=== PATIENT | male | born 1960 | race Caucasian/White ===

== ENCOUNTER 2022-09-25 10:12 | Emergency (ER) | payer BC, SELFPAY ==
--- NOTE | ~2022-09-25 | XR_ITS ---
EXAMINATION: XR chest 2V DATE: 09/25/2022 12:00 INDICATION: Chest pain, hypertension TECHNIQUE: PA and lateral views of the chest are obtained. COMPARISON: None available FINDINGS: The lungs are free of acute opacities. No pleural effusion or pneumothorax. The cardiomedia stinal silhouette is normal. There is mild thoracic spondylosis. IMPRESSION: 1. No acute cardiopulmonary abnormality. Reviewed, dictated and finalized at location L. MERIZATION ENGINEER
--- NOTE | ~2022-09-25 | CT_ITS ---
Non-contrast Head CT History: Hypertension, headache Technique: Axial non-contrast imaging of the brain was performed. Dose reduction technique was used on this scan by utilizing automated exposure control and iterative reconstruction technique. The dose -length product (DLP) was 605.33 mGy-cm. Findings: There is no evidence of intracranial hemorrhage, mass lesion, or acute infarct. Brain par enchyma appears normal. The ventricles and subarachnoid spaces are normal in size. The calvarium ap pears normal. The visualized paranasal sinuses and mastoid air cells are clear. Impression: No significant abnormality seen. Reviewed, dictated and finalized at location . ERTY MAN Impression: No significant abnormality seen.
[2022-09-25 10:24] VITALS: BP 183/84; PULSE 91; RESP 14; TEMP 36.4; O2SAT 100
--- NOTE | 2022-09-25 11:23 | ECG_ITS ---
Measurements Intervals [place] Rate: 98 P: 50 GA: 176 QRS: -9 QRSD: 99 T: 70 QT: 351 QTc: 450 Interpretive Statements SINUS RHYTHM NO PREVIOUS ECG AVAILABLE FOR COMPARISON Electronically Signed On 09-25-2022 15:47:12 ACQUISITION ANALYST by Anam Panda M.D.
[2022-09-25 11:24] VITALS: BP 175/97; PULSE 92; RESP 13; O2SAT 100
--- NOTE | 2022-09-25 11:37 | ED.RECABL ---
HPI - Recheck/Abnormal Lab/Rx General Chief Complaint: Recheck/Abnormal Lab/Rx Stated Complaint: Headache for several days, elevated bp at home Time Seen by Provider: 09/25/22 11:26 Source: patient and family Mode of arrival: ambulatory Limitations: no limitations History of Present Illness HPI narrative: Patient is 62 years old white male came to the emergency room by private car with his complaining of slight diffuse headache over the last 2 days, subsequently patient got worried and started checking his blood pressure which was 159/96 last night, this morning 185/115. Patient on hydrochlorothiazide 12.5 mg once a day, he denies any fever, chills, nausea, vomiting, chest pain or shortness of breath. Patient been feeling off over the last 2 days, he denies aggravating or relieving factors of his headache. Patient's reported that patient under tremendous amount of stress lately. Related Data Allergies Allergy/AdvReac Type Severity Reaction Status Date / Time No Known Allergies Allergy Verified 09/25/22 11:24 Review of Systems Review of Systems: All systems reviewed & are unremarkable except as noted in HPI and below Exam Narrative: General appearance: Well-developed, well-nourished, anxious with intermittent sighing Skin: Normal color Head: Normocephalic, nontraumatic Eyes: Clear conjunctiva ENT: Oropharynx normal, ears normal, nose normal Neck: Supple, nontender Chest and respiratory: Airway patent, no respiratory distress, no accessory muscle use Heart: Regular rate/rhythm Abdomen: Soft, nontender, no organomegaly, quiet bowel sounds Vascular: Normal peripheral pulses, normal capillary refill. Musculoskeletal: Normal range of motion, nontender back Neurologic: Alert and oriented ?3, USED [employer] is normal as tested, no gross motor deficit Course Reevaluation(s) Reevaluation #1: Patient feeling much better, after having Ativan 1 mg IV, blood pressure within normal limits, less anxious. Date: 09/25/22 Time: 13:10 Vital Signs Vital signs: Vital Signs Temperature 36.4 C 09/25/22 10:24 Pulse Rate 91 09/25/22 10:24 Respiratory Rate 14 09/25/22 10:24 Blood Pressure 183/84 H 09/25/22 10:24 Pulse Oximetry 100 09/25/22 10:24 Oxygen Delivery Room Air 02/09/23 10:24 Temperature 36.4 C 09/25/22 10:24 Pulse Rate 67 09/25/22 12:47 Respiratory Rate 14 09/25/22 12:47 Blood Pressure 134/87 09/25/22 12:47 Pulse Oximetry 97 09/25/22 12:47 Oxygen Delivery Room Air 09/25/22 10:24 MDM - Recheck/Abnormal Lab/Rx MDM Narrative Medical decision making narrative: Patient presents with slight headache and feeling of for the last 2 days. Physical examination showed that the patient is restless, with intermittent sighing, Anxiety related symptoms is my concern. Patient's reported that the patient under quite a bit of stress lately. Patient is anxious about his blood pressure, been monitoring his blood pressure every hour over the last 48 hours which was high, after arrival to the emergency room blood pressure went down to normal limits without any medical intervention. Labs, EKG, chest x-ray, CT scan of the head ordered. Work-up did not show any significant finding to explain patient condition. Patient received 1 mg of Ativan IV and 30 mg of Toradol IV in the emergency room, Currently patient feeling much better, my plan to discharge patient on clonazepam for 1 week for possible anxiety related symptoms. Differential Diagnosis Differential diagnosis: Likely other (Anxiety related symptoms, tension headache, uncontrolled hypertension secondary to anxiety) Lab Data 09/25/22 11:33 09/25/22 11:33
[2022-09-25 11:38] LABS: Basophils Percent Auto 0.8 % (0.2-1.2); Eosinophils Percent Auto 0.2 % (0-4.4); Hematocrit 40.3 % (42.0-52.0); Hemoglobin 14.6 g/dL (14.0-18.0); Immature Granulocyte Absolute 0.02 K/mm3 (0.00-0.031); Immature Granulocyte Percent A 0.4 % (0-0.5); Lymphocytes Percent Auto 16.9 % (18.3-44.2); Mean Corpuscular HGB Conc 36.2 g/dl (32-36); Mean Corpuscular Volume 85.6 fl (80-100); Mean Platelet Volume 8.2 fl (7.4-10.4); Monocytes Absolute Auto 0.5 K/mm3 (0.1-0.6); Monocytes Percent Auto 9.2 % (2.6-8.5); Neutrophils Absolute Auto 3.9 K/mm3 (1.3-6.7); Neutrophils Percent Auto 72.5 % (45.5-73.1); Platelet Count Result 212 k/mm3 (150-375); Red Blood Count 4.71 M/mm3 (4.6-6.20); Red Cell Distribution Width 12.9 % (11.5-14.5); White Blood Count 5.3 K/mm3 (4.5-10.0)
[2022-09-25 11:48] LABS: INR 0.9; Prothrombin Time 12.2 Seconds (11.1-14.7)
[2022-09-25 11:49] LABS: Partial Thromboplastin Time 24.9 SECONDS (22.3-36.8)
[2022-09-25 11:56] LABS: Alanine Aminotransferase 28 U/L (6-50); Albumin Level 4.7 g/dL (3.5-5.1); Alkaline Phosphatase 48 U/L (38-126); Anion Gap 6 mmol/L (8-16); Aspartate Amino Transferase 25 U/L (17-59); Bilirubin,Total 1.2 mg/dL (0.2-1.3); Blood Urea Nitrogen 13 mg/dL (9-20); Calcium 8.9 mg/dL (8.4-10.2); Carbon Dioxide 26 mmol/L (22-30); Chloride 100 mmol/L (98-107); Estimated CRCL calculation 105 ml/min; Estimated Glomerular Filt Rate > 60; Glucose 114 mg/dL (65-110); Lipase 52 U/L (23-300); Potassium 3.6 mmol/L (3.4-5.0); Sodium 132 mmol/L (137-145)
[2022-09-25 12:01] VITALS: BP 136/75; PULSE 92; RESP 18; O2SAT 100
[2022-09-25] MEDS: KETOROLAC 30 MG/ML VIAL (*BKC) IV PUSH (12:04)
[2022-09-25 12:07] LABS: Troponin I < 0.012 ng/mL (0.000-0.034)
[2022-09-25] MEDS: LORazepam INJ (*CRX) 2 MG/ML VIAL 1 MG IV PUSH (12:31)
[2022-09-25 12:47] VITALS: BP 134/87; PULSE 67; RESP 14; O2SAT 97
[2022-09-25 13:29] VITALS: BP 124/77; PULSE 67; RESP 18; O2SAT 99
== END 2022-09-25 13:32 | disposition home or self-care (01) ==
PROVIDERS: Emergency Provider Emergency Medicine; PCP Physician Assistant
DX: R51.9 Headache, unspecified (principal); F41.9 Anxiety disorder, unspecified
CPT/HCPCS: 36415; 70450; 71046; 80053; 83690; 84484; 85025; 85610; 85730; 93005; 96374; 96375; 99284; J1885; J2060